=== PATIENT | male | born 1935 | race Caucasian/White ===

== ENCOUNTER 2017-06-05 02:10 | Emergency (ER) | payer OTHER ==
[~2017-06-05] VITALS: Ht 177.8 cm; Wt 95.4 kg
[~2017-06-05 02:10] MED LIST: ASPIRIN81 M2 PO; BACTRIM,SEPT1 TABLET PO; LISINOPRIL2.5 MG PO; METOPROLOL TART25 MG PO; SEPTRA DS TABL1 EACH PO; ZESTRIL2.5 MG PO
[2017-06-05] MEDS ORDERED: PERCOCET 5/31 TABLET PO (03:43)
[2017-06-05] MEDS ORDERED: MOTRIN600 MG PO (03:43)
[2017-06-05 04:14] VITALS: BP 155/85
== END 2017-06-05 04:15 | disposition home or self-care (01) ==
LOC: EME 02:10
DX: S42.292A Other displaced fracture of upper end of left humerus, initial encounter for closed fracture (principal); W18.39XA Other fall on same level, initial encounter; Y92.003 Bedroom of unspecified non-institutional (private) residence as the place of occurrence of the external cause; Z95.0 Presence of cardiac pacemaker
CPT/HCPCS: 73030; 99281; 99284